=== PATIENT | male | born 1985 | race Caucasian/White ===

== ENCOUNTER 2017-02-01 09:10 | Emergency (ER) | payer OTHER ==
--- NOTE | 2017-02-01 09:18 | EDM.PDOC ---
ED HPI GENERAL MEDICAL PROBLEM - General Chief Complaint: Back Pain or Injury Stated Complaint: LOWER BACK PAIN, [id number] Time Seen by Provider: 02/01/17 09:18 Source of Information: Reports: Patient History Limitations: Reports: No Limitations - History of Present Illness INITIAL COMMENTS - FREE TEXT/NARRATIVE: Pt bent down thursday to pick and shovel man item and felt pain in low back. He has had issues with this for approx one year and must be careful how he lifts and bends. He went to chiropractor for treatment thursday but did not help. Has seen chiropracter in past for this and usually helps. No prior h/o of specific injury to back. No loss of bowel/bladder function. Bilateral Lower Back Pain Score (Numeric/FACES): 6 - Related Data Allergies Allergy/AdvReac Type Severity Reaction Status Date / Time No Known Allergies Allergy Verified 02/01/17 09:19 Home Meds: Home Meds . [No Known Home Meds] 03/22/14 [History] Past Medical History - Past Health History Medical/Surgical History: Denies Medical/Surgical History Social & Family History - Family History Family Medical History: Noncontributory - Tobacco Use Years of Tobacco use: 12 - Alcohol Use Days Per Week of Alcohol Use: 0 - Recreational Drug Use Recreational Drug Use: No ED ROS GENERAL - Review of Systems Review Of Systems: See Below Musculoskeletal: Reports: Other (low back pain) ED EXAM, DIZZINESS - Physical Exam Exam: See Below Exam Limited By: No Limitations General Appearance: Alert Back Exam: Other (tender lower lumbar bilat approx L3-L5, with subjective radiation into right buttock. bilat lower ext reflexes 2+/2+, reflexes 5+/5+. straight leg raising positive on right at approx 45 degress.) Course - Vital Signs Last Recorded V/S: Last Vital Signs Temp 36.1 C 02/01/17 09:20 Pulse 96 02/01/17 09:20 Resp 16 02/01/17 09:20 BP 158/107 H 02/01/17 09:20 Pulse Ox 98 02/01/17 09:20 - Orders/Labs/Meds Orders: Active Orders 24 hr Category Date Time Status Cyclobenzaprine [Flexeril] Med 02/01/17 09:38 Once 10 mg PO ONETIME ONE Ondansetron [Zofran ODT] Med 02/01/17 09:38 Once 4 mg PO ONETIME ONE Medication Orders Cyclobenzaprine HCl (Flexeril) 10 mg PO ONETIME ONE Stop: 02/01/17 09:39 Ondansetron HCl (Zofran Odt) 4 mg PO ONETIME ONE Stop: 02/01/17 09:39 Meds: Medications Generic Name Dose Route Start Last Admin Trade Name Freq PRN Reason Stop Dose Admin Cyclobenzaprine HCl 10 mg 02/01/17 09:38 Flexeril PO 02/01/17 09:39 ONETIME ONE Ondansetron HCl 4 mg 02/01/17 09:38 Zofran Odt PO 02/01/17 09:39 ONETIME ONE Discontinued Medications Generic Name Dose Route Start Last Admin Trade Name Freq PRN Reason Stop Dose Admin Hydromorphone HCl 1 mg 02/01/17 09:37 Dilaudid IM 02/01/17 09:38 ONETIME ONE Departure - Departure Time of Disposition: 09:30 Disposition: Home, Self-Care 01 Condition: good Clinical Impression: Low back sprain - Discharge Information Instructions: Muscle Strain, [id number], Back Injury Prevention, [id number] Additional Instructions: Pain medicine and muscle relaxant as needed. See your provider if no improvement to consider possible physical therapy and/or MRI of the back. - My Orders Last 24 Hours: My Active Orders 02/01/17 09:38 Cyclobenzaprine [Flexeril] 10 mg PO ONETIME ONE Ondansetron [Zofran ODT] 4 mg PO ONETIME ONE - Assessment/Plan Last 24 Hours: My Active Orders 02/01/17 09:38 Cyclobenzaprine [Flexeril] 10 mg PO ONETIME ONE Ondansetron [Zofran ODT] 4 mg PO ONETIME ONE
[2017-02-01 09:25] VITALS: BP 158/107
[2017-02-01] MEDS ORDERED: HYDROmorphone 1 MG/ML Syringe IM ONE (09:37)
[2017-02-01] MEDS ORDERED: Ondansetron 4 MG Tab.DIS PO ONE (09:38)
[2017-02-01] MEDS ORDERED: Cyclobenzaprine 10 MG Tab PO ONE (09:38)
== END 2017-02-01 10:01 | disposition home or self-care (01) ==
LOC: DL.ED 09:10
DX: S33.5XXA Sprain of ligaments of lumbar spine, initial encounter (principal); X50.0XXA Overexertion from strenuous movement or load, initial encounter; Y93.89 Activity, other specified
CPT/HCPCS: 96372; 99283; A9270; J1170